=== PATIENT | male | born 1955 | race African-American/Black ===

== ENCOUNTER 2016-07-30 14:54 | Inpatient (IN) | payer BC ==
[2016-07-30 18:54] VITALS: BMI 23.5
--- NOTE | 2016-07-30 20:56 | HP ---
CIWA Score - CIWA Score Nausea/Vomitin Muscle Tremors: 3 Anxiety: 3 Agitation: 3 Paroxysmal Sweats: 2 Orientation: 0-Oriented Tacttile Disturbances: 2-Mild Itch/Numbness/Burn Auditory Disturbances: 2-Mild Harshness/Frighten Visual Disturbances: 2-Mild Sensitivity Headache: 2-Mild CIWA-Ar Total Score: 22 Admission ROS BHS - HPI Chief Complaint: i need help to stop drinking alcohol and cocaine, Allergies/Adverse Reactions: Allergies Allergy/AdvReac Type Severity Reaction Status Date / Time sulfa Allergy Uncoded 07/30/16 20:57 History of Present Illness: this 61 years old male with alcohol and cocain dependence,withdrawal symptom, never been in detox before, syncope hiv since 1986 non compliance with medication,last 3 months ago htn nicotine dependence weight loss Exam Limitations: No Limitations - Ebola screening Have you been sick,other than usual withdrawal symptoms: No - Review of Systems Constitutional: Loss of Appetite, Malaise, Night Sweats, Changes in sleep, Weakness, Unintentional Wgt. Loss EENT: reports: Nose Congestion Respiratory: reports: No Symptoms reported Cardiac: reports: No Symptoms Reported GI: reports: Nausea, Vomiting, Abdominal cramping : reports: No Symptoms Reported Musculoskeletal: reports: Back Pain, Muscle Pain Integumentary: reports: Dryness Neuro: reports: Headache, Tremors Endocrine: reports: No Symptoms Reported Hematology: reports: Other (hiv) Psychiatric: reports: No Sypmtoms Reported, Judgement Intact, Mood/Affect Appropiate, Orientated x3 Patient History - Patient Medical History Hx Anemia: No Hx Asthma: No Hx Chronic Obstructive Pulmonary Disease (COPD): No Hx Cancer: No Hx Cardiac Disorders: No Hx Congestive Heart Failure: No Hx Hypertension: Yes (on lisinopril 10 mgs po daily) Hx Hypercholesterolemia: No Hx Pacemaker: No HX Cerebrovascular Accident: No Hx Seizures: No Hx Dementia: No Hx Diabetes: No Hx Gastrointestinal Disorders: No Hx Liver Disease: No Hx Genitourinary Disorders: No Hx Sexually Transmitted Disorders: No Hx Renal Disease (ESRD): No Hx Thyroid Disease: No Hx Human Immunodeficiency Virus (HIV): Yes (since 1986) Hx Hepatitis C: Yes Hx Depression: No Hx Suicide Attempt: No Hx Bipolar Disorder: No Hx Schizophrenia: No Other Medical History: no suicidl,no homicidal - Patient Surgical History Past Surgical History: Yes Hx Lung Surgery: Yes (lobectomy left lower in 2015 in [place] ) - PPD History Previous Implant?: Yes Documented Results: Positive w/o proof PPD to be Administered?: No - Smoking Cessation Smoking history: Current every day smoker Have you smoked in the past 12 months: Yes Aproximately how many cigarettes per day: 7 Cigars Per Day: 0 Hx Chewing Tobacco Use: No Initiated information on smoking cessation: Yes 'Breaking Loose' booklet given: 07/30/16 - Substance & Tx. History Hx Alcohol Use: Yes Hx Substance Use: Yes Substance Use Type: Alcohol, Cocaine Hx Substance Use Treatment: No - Substances Abused Alcohol Route: Oral Frequency: Daily Amount used: 2pints of vodka/5 of 24 ozs of beer Age of first use: 10 Date of Last Use: 07/29/16 Cocaine Route: Inhalation Frequency: 1-3 times last 30 days Amount used: 20$ Age of first use: 16 Date of Last Use: 07/29/16 Family Disease History - Family Disease History Family History: Denies Admission Physical Exam [facility] - Vital Signs Vital Signs: Vital Signs - 24 hr 07/30/16 18:51 Temperature 98.0 F Pulse Rate 86 Respiratory 18 Rate Blood Pressure 163/91 - Physical General Appearance: Yes: Moderate Distress, Tremorous, Irritable, Sweating HEENTM: Yes: Within Normal Limits, Hearing grossly Normal, Normal ENT Inspection Respiratory: Yes: Lungs Clear, Normal Breath Sounds, No Respiratory Distress, Surgical Scar (s/p lower lobectomy left benign) Neck: Yes: Supple, Trachea in good position Breast: Yes: Within Normal Limits Cardiology: Yes: Within Normal Limits, Regular Rhythm, Regular Rate, S1, S2 Abdominal: Yes: Within Normal Limits, Normal Bowel Sounds, Non Tender, Flat, Soft Genitourinary: Yes: Within Normal Limits Back: Yes: Muscle Spasm Musculoskeletal: Yes: Back pain, Muscle Pain Extremities: Yes: Normal Range of Motion, Non-Tender, Tremors Neurological: Yes: analytical lab technician II-XII NML intact, Fully Oriented, Alert, Motor Strength 5/5 Integumentary: Yes: Dry Lymphatic: Yes: Within Normal Limits - Diagnostic (1) Alcohol dependence with uncomplicated withdrawal Current Visit: Yes Status: Acute (2) Cocaine dependence Current Visit: Yes Status: Acute (3) Syncope Current Visit: Yes Status: Acute (4) HIV disease Current Visit: Yes Status: Acute (5) Hypertension Current Visit: Yes Status: Acute (6) Weight loss Current Visit: Yes Status: Acute (7) Hepatitis C Current Visit: Yes Status: Acute (8) History of lobectomy of lung Current Visit: Yes Status: Acute Cleared for Admission S - Detox or Rehab [facility] Level of Care: Medically Managed Detox Regimen/Protocol: Librium S Breath Alcohol Content Breath Alcohol Content: 0 Urine Drug Screen - Results Drug Screen Negative: No Urine Drug Screen Results: WINSTON-Cocaine
[2016-07-30] MEDS ORDERED: MAGNESIUM CITRATE 300 ML BOTTLE PO PRN (21:19)
[2016-07-30] MEDS ORDERED: guaiFENesin/D-METHORPHAN HB 10 ML UNIT-DOSE CUPS PO PRN (21:19)
[2016-07-30] MEDS ORDERED: ACETAMINOPHEN 325 MG TABLET (FP) PO PRN (21:19)
[2016-07-30] MEDS ORDERED: NICOTINE POLACRILEX 2 MG GUM BC PRN (21:19)
[2016-07-30] MEDS ORDERED: chlordiazePOXIDE HCL 25 MG CAPSULE PO ONE (21:19)
[2016-07-30] MEDS ORDERED: MAGNESIUM HYDROX 2400MG/30ML ORAL SUSPENSION 30 ML CUP PO PRN (21:19)
[2016-07-30] MEDS ORDERED: hydrOXYzine PAMOATE 50 MG CAPSULE (FP) PO PRN (21:19)
[2016-07-30] MEDS ORDERED: MAG HYDROX/AL HYDROX/SIMETH 30 ML UNIT-DOSE CUP PO PRN (21:19)
[2016-07-30] MEDS ORDERED: MENTHOL/PHENOL 1 EACH UD MM PRN (21:19)
[2016-07-30] MEDS ORDERED: IBUPROFEN 400 MG TABLET (FP) PO PRN (21:19)
[2016-07-30] MEDS ORDERED: P-EPHED 60MG/TRIPROLIDI 2.5MG TABLET PO PRN (21:19)
[2016-07-30] MEDS ORDERED: LOPERAMIDE HCL 2 MG CAPSULE PO PRN (21:19)
[2016-07-30] MEDS ORDERED: chlordiazePOXIDE HCL 25 MG CAPSULE PO PRN (21:19)
[2016-07-30] MEDS: THIAMINE HCL 100 MG TABLET (FP) PO SCH (23:11)
[2016-07-30] MEDS: chlordiazePOXIDE HCL 25 MG CAPSULE PO SCH (23:11)
[2016-07-30] MEDS: diphenhydrAMINE HCL 50 MG CAPSULE PO PRN (23:11)
[2016-07-31 03:00] LABS: URINE APPEARANCE CLEAR; URINE BILIRUBIN NEGATIVE (NEGATIVE); URINE BLOOD NEGATIVE (NEGATIVE); URINE COLOR DKYELLOW; URINE GLUCOSE (UA) NEGATIVE (NEGATIVE); URINE KETONE NEGATIVE (NEGATIVE); URINE LEUK ESTERASE NEGATIVE (NEGATIVE); URINE NITRITE NEGATIVE (NEGATIVE); URINE PROTEIN NEGATIVE (NEGATIVE); URINE UROBILINOGEN 4.0 E.U/dl E.U./dl (0.2-1.0)
[2016-07-31] MEDS: chlordiazePOXIDE HCL 25 MG CAPSULE PO SCH ×4 (05:42→22:34)
[2016-07-31 09:53] LABS: ALBUMIN 2.3 g/dl (3.4-5.0); ANION GAP 7 (8-16); BILIRUBIN,TOTAL 0.7 mg/dL (0.2-1.0); CALCIUM 7.9 mg/dL (8.5-10.1); CO2 27 mmol/L (21-32); COCKROFT - GAULT 94.75; GLUCOSE,RANDOM 81 mg/dL (74-106); SGOT/AST 167 U/L (15-37); SGPT/ALT 107 U/L (12-78); TOT PROT 7.2 g/dl (6.4-8.2)
[2016-07-31 09:54] LABS: ALK PHOS 82 U/L (45-117)
[2016-07-31 09:56] LABS: MCH 31.6 pg (25.7-33.7); MCHC 32.7 g/dl (32.0-35.9); MEAN CELL VOLUME 96.4 fl (80-96); MEAN PLT VOLUME 11.2 fl (7.5-11.1); PLATELET COUNT 76 K/MM3 (134-434); RDW 13.7 % (11.9-15.9); WHITE BLOOD COUNT 3.6 K/mm3 (4.0-10.0)
[2016-07-31] MEDS: PRENATAL VITAMINS W/ FOLIC ACID TABLET (FP) PO SCH (10:41)
[2016-07-31] MEDS: LISINOPRIL 10 MG TABLET (FP) PO SCH (10:41)
--- NOTE | 2016-07-31 13:08 | EKG ---
Test Reason : Blood Pressure : / mmHG Vent. Rate : 068 BPM Atrial Rate : 068 BPM P-R Int : 178 ms QRS Dur : 100 ms QT Int : 408 ms P-R-T Axes : 071 079 072 degrees QTc Int : 433 ms NORMAL SINUS RHYTHM VOLTAGE CRITERIA FOR LEFT VENTRICULAR HYPERTROPHY ABNORMAL ECG NO PREVIOUS ECGS AVAILABLE Confirmed by MADDIE MUELLER MD ([id number]) on 07/31/2016 1:08:26 PM Referred By: Confirmed By:MADDIE MUELLER MD
--- NOTE | 2016-07-31 13:13 | PN ---
S CIWA - CIWA Score Nausea/Vomitin-Mild Nausea/No Vomiting Muscle Tremors: 4-Moderate,w/Arms Extend Anxiety: 4-Mod. Anxious/Guarded Agitation: 3 Paroxysmal Sweats: 3 Orientation: 0-Oriented Tacttile Disturbances: 1-Very Mild Itch/Numbness Auditory Disturbances: 0-None Visual Disturbances: 0-None Headache: 0-None Present CIWA-Ar Total Score: 16 BHS Progress Note (SOAP) Subjective: Anxiety,tremors,sweating,interrupted sleep,restless Objective: 07/31/16 13:12 Vital Signs - 8 hr 07/31/16 07/31/16 07/31/16 06:25 08:00 09:17 Temperature 97.8 F 98.0 F Pulse Rate 75 69 77 Respiratory 16 18 Rate Blood Pressure 157/94 155/84 158/92 Laboratory Tests 07/30/16 07/31/16 07/31/16 23:08 07:00 07:00 WBC 3.6 L RBC 4.02 Hgb 12.7 Hct 38.8 MCV 96.4 H MCHC 32.7 RDW 13.7 Plt Count 76 L MPV 11.2 H Sodium 140 Potassium 3.8 Chloride 106 Carbon Dioxide 27 Anion Gap 7 L BUN 17 Creatinine 1.0 Creat Clearance w eGFR > 60 Random Glucose 81 Calcium 7.9 L Total Bilirubin 0.7 AST 167 H ALT 107 H Alkaline Phosphatase 82 Total Protein 7.2 Albumin 2.3 L Urine Color Dkyellow Urine Appearance Clear Urine pH 6.0 Ur Specific [place] 1.017 Urine Protein Negative Urine Glucose (UA) Negative Urine Ketones Negative Urine Blood Negative Urine Nitrite Negative Urine Bilirubin Negative Urine Urobilinogen 4.0 e.u/dl Ur Leukocyte Esterase Negative labs noted Assessment: 07/31/16 13:12 Withdrawal sx. Plan: Continue detox
[2016-07-31] MEDS: diphenhydrAMINE HCL 50 MG CAPSULE PO PRN (22:34)
[2016-07-31] MEDS: THIAMINE HCL 100 MG TABLET (FP) PO SCH (22:34)
[2016-08-01] MEDS: chlordiazePOXIDE HCL 25 MG CAPSULE PO SCH ×3 (05:26→17:09)
[2016-08-01] MEDS: PRENATAL VITAMINS W/ FOLIC ACID TABLET (FP) PO SCH (10:48)
[2016-08-01] MEDS: LISINOPRIL 10 MG TABLET (FP) PO SCH (10:48)
--- NOTE | 2016-08-01 15:43 | PN ---
S CIWA - CIWA Score Nausea/Vomitin-No Nausea/No Vomiting Muscle Tremors: 4-Moderate,w/Arms Extend Anxiety: 3 Agitation: 3 Paroxysmal Sweats: 3 Orientation: 0-Oriented Tacttile Disturbances: 1-Very Mild Itch/Numbness Auditory Disturbances: 0-None Visual Disturbances: 0-None Headache: 0-None Present CIWA-Ar Total Score: 14 BHS Progress Note (SOAP) Subjective: Anxiety,tremors,sweating,interrupted sleep,restless. Objective: 08/01/16 15:42 Vital Signs - 8 hr 08/01/16 10:08 Temperature 97.8 F Pulse Rate 77 Respiratory 20 Rate Blood Pressure 153/91 Laboratory Tests 07/30/16 07/31/16 07/31/16 23:08 07:00 07:00 WBC 3.6 L RBC 4.02 Hgb 12.7 Hct 38.8 MCV 96.4 H MCHC 32.7 RDW 13.7 Plt Count 76 L MPV 11.2 H Sodium 140 Potassium 3.8 Chloride 106 Carbon Dioxide 27 Anion Gap 7 L BUN 17 Creatinine 1.0 Creat Clearance w eGFR > 60 Random Glucose 81 Calcium 7.9 L Total Bilirubin 0.7 AST 167 H ALT 107 H Alkaline Phosphatase 82 Total Protein 7.2 Albumin 2.3 L Urine Color Dkyellow Urine Appearance Clear Urine pH 6.0 Ur Specific [place] 1.017 Urine Protein Negative Urine Glucose (UA) Negative Urine Ketones Negative Urine Blood Negative Urine Nitrite Negative Urine Bilirubin Negative Urine Urobilinogen 4.0 e.u/dl Ur Leukocyte Esterase Negative RPR Titer 07/31/16 07:00 WBC RBC Hgb Hct MCV MCHC RDW Plt Count MPV Sodium Potassium Chloride Carbon Dioxide Anion Gap BUN Creatinine Creat Clearance w eGFR Random Glucose Calcium Total Bilirubin AST ALT Alkaline Phosphatase Total Protein Albumin Urine Color Urine Appearance Urine pH Ur Specific [place] Urine Protein Urine Glucose (UA) Urine Ketones Urine Blood Urine Nitrite Urine Bilirubin Urine Urobilinogen Ur Leukocyte Esterase RPR Titer Nonreactive labs noted Assessment: 08/01/16 15:42 Withdrawal sx. Plan: Continue detox
[2016-08-01] MEDS: THIAMINE HCL 100 MG TABLET (FP) PO SCH (22:32)
[2016-08-01] MEDS: chlordiazePOXIDE 5 MG CAPSULE PO SCH (22:32)
[2016-08-02] MEDS: chlordiazePOXIDE 5 MG CAPSULE PO SCH ×3 (06:01→17:57)
[2016-08-02] MEDS: LISINOPRIL 10 MG TABLET (FP) PO SCH ×2 (11:01→21:54)
[2016-08-02] MEDS: PRENATAL VITAMINS W/ FOLIC ACID TABLET (FP) PO SCH (11:01)
--- NOTE | 2016-08-02 13:28 | PN ---
S Progress Note (SOAP) Subjective: Nausea / vomiting, Tremors, Sweating, Body aches, Interrupted sleep. Objective: PT. A & O X 3. 08/02/16 13:25 Vital Signs Temperature 95.0 F L 08/02/16 13:23 Pulse Rate 68 08/02/16 13:23 Respiratory Rate 18 08/02/16 13:23 Blood Pressure 152/95 08/02/16 13:23 O2 Sat by Pulse Oximetry (%) Laboratory Last Values WBC 3.6 K/mm3 (4.0-10.0) L 07/31/16 07:00 RBC 4.02 M/mm3 (4.00-5.60) 07/31/16 07:00 Hgb 12.7 GM/dL (11.7-16.9) 07/31/16 07:00 Hct 38.8 % (35.4-49) 07/31/16 07:00 MCV 96.4 fl (80-96) H 07/31/16 07:00 MCHC 32.7 g/dl (32.0-35.9) 07/31/16 07:00 RDW 13.7 % (11.9-15.9) 07/31/16 07:00 Plt Count 76 K/MM3 (134-434) L 07/31/16 07:00 MPV 11.2 fl (7.5-11.1) H 07/31/16 07:00 Sodium 140 mmol/L (136-145) 07/31/16 07:00 Potassium 3.8 mmol/L (3.5-5.1) 07/31/16 07:00 Chloride 106 mmol/L (98-107) 07/31/16 07:00 Carbon Dioxide 27 mmol/L (21-32) 07/31/16 07:00 Anion Gap 7 (8-16) L 07/31/16 07:00 BUN 17 mg/dL (7-18) 07/31/16 07:00 Creatinine 1.0 mg/dL (0.7-1.3) 07/31/16 07:00 Creat Clearance w eGFR > 60 (>60) 07/31/16 07:00 Random Glucose 81 mg/dL (74-106) 07/31/16 07:00 Calcium 7.9 mg/dL (8.5-10.1) L 07/31/16 07:00 Total Bilirubin 0.7 mg/dL (0.2-1.0) 07/31/16 07:00 AST 167 U/L (15-37) H 07/31/16 07:00 ALT 107 U/L (12-78) H 07/31/16 07:00 Alkaline Phosphatase 82 U/L (45-117) 07/31/16 07:00 Total Protein 7.2 g/dl (6.4-8.2) 07/31/16 07:00 Albumin 2.3 g/dl (3.4-5.0) L 07/31/16 07:00 Urine Color Dkyellow 07/30/16 23:08 Urine Appearance Clear 07/30/16 23:08 Urine pH 6.0 (5.0-8.0) 07/30/16 23:08 Ur Specific [place] 1.017 (1.001-1.035) 07/30/16 23:08 Urine Protein Negative (NEGATIVE) 07/30/16 23:08 Urine Glucose (UA) Negative (NEGATIVE) 07/30/16 23:08 Urine Ketones Negative (NEGATIVE) 07/30/16 23:08 Urine Blood Negative (NEGATIVE) 07/30/16 23:08 Urine Nitrite Negative (NEGATIVE) 07/30/16 23:08 Urine Bilirubin Negative (NEGATIVE) 07/30/16 23:08 Urine Urobilinogen 4.0 e.u/dl E.U./dl (0.2-1.0) 07/30/16 23:08 Ur Leukocyte Esterase Negative (NEGATIVE) 07/30/16 23:08 RPR Titer Nonreactive (NONREACTIVE) 07/31/16 07:00 LABS NOTED. Assessment: 08/02/16 13:27 WITHDRAWAL SYMPTOMS. Plan: CONTINUE DETOX. ADVISED PATIENT TO FOLLOW-UP WITH [facility] / REHAB MEDICAL PROVIDER AFTER DISCHARGE FROM DETOX FOR GENERAL MEDICAL ASSESSMENT AND FOR ABNORMAL ADMISSION LAB VALUES.
[2016-08-02] MEDS: THIAMINE HCL 100 MG TABLET (FP) PO SCH (21:54)
[2016-08-02] MEDS: chlordiazePOXIDE HCL 10 MG CAPSULE PO SCH (22:42)
[2016-08-03] MEDS: chlordiazePOXIDE HCL 10 MG CAPSULE PO SCH ×2 (06:30→10:37)
[2016-08-03 06:31] VITALS: BP 146/88; PULSE 71; TEMP 97.1
--- NOTE | 2016-08-03 08:37 | PN ---
[facility] Progress Note (SOAP) Subjective: no complaints Objective: 08/03/16 08:36 Vital Signs - 8 hr 08/03/16 06:30 Temperature 97.1 F L Pulse Rate 71 Respiratory 18 Rate Blood Pressure 146/88 Laboratory Tests 07/30/16 07/31/16 07/31/16 23:08 07:00 07:00 WBC 3.6 L RBC 4.02 Hgb 12.7 Hct 38.8 MCV 96.4 H MCHC 32.7 RDW 13.7 Plt Count 76 L MPV 11.2 H Sodium 140 Potassium 3.8 Chloride 106 Carbon Dioxide 27 Anion Gap 7 L BUN 17 Creatinine 1.0 Creat Clearance w eGFR > 60 Random Glucose 81 Calcium 7.9 L Total Bilirubin 0.7 AST 167 H ALT 107 H Alkaline Phosphatase 82 Total Protein 7.2 Albumin 2.3 L Urine Color Dkyellow Urine Appearance Clear Urine pH 6.0 Ur Specific [place] 1.017 Urine Protein Negative Urine Glucose (UA) Negative Urine Ketones Negative Urine Blood Negative Urine Nitrite Negative Urine Bilirubin Negative Urine Urobilinogen 4.0 e.u/dl Ur Leukocyte Esterase Negative RPR Titer 07/31/16 07:00 WBC RBC Hgb Hct MCV MCHC RDW Plt Count MPV Sodium Potassium Chloride Carbon Dioxide Anion Gap BUN Creatinine Creat Clearance w eGFR Random Glucose Calcium Total Bilirubin AST ALT Alkaline Phosphatase Total Protein Albumin Urine Color Urine Appearance Urine pH Ur Specific [place] Urine Protein Urine Glucose (UA) Urine Ketones Urine Blood Urine Nitrite Urine Bilirubin Urine Urobilinogen Ur Leukocyte Esterase RPR Titer Nonreactive elevated lfts, hypoalbuminemia, macrocytosis Assessment: 08/03/16 08:36 completed detox, medically stable, malnutirtion 2/2 substance use, hepatitis Plan: discharge, f/u abnormal results PCP, dietary advice given, fluids, encoruageg mbualtions
--- NOTE | 2016-08-03 08:41 | DS ---
[facility] Detox Discharge Summary Admission Date: 07/30/16 Discharge Date: 08/03/16 - History Present History: Alcohol Dependence, Cocaine Dependence Pertinent Past History: HIV, Hep c, anxiety, insomnia, depression - Physical Exam Results Vital Signs: Vital Signs Temperature 97.1 F L 08/03/16 06:30 Pulse Rate 71 08/03/16 06:30 Respiratory Rate 18 08/03/16 06:30 Blood Pressure 146/88 08/03/16 06:30 O2 Sat by Pulse Oximetry (%) Pertinent Admission Physical Exam Findings: withdrawal sx - Treatment Hospital Course: Detox Protocol Followed, Detoxed Safely, Responded well, Discharged Condition Good, Rehab Referral Accepted Patient has Accepted a Rehab Referral to: Yes - Medication Discharge Medications: Ambulatory Orders Atazanavir [Reyataz -] 300 mg PO DAILY 07/30/16 Emtricitabine/Tenofovir [Truvada -] 1 tab PO DAILY 07/30/16 Lisinopril [Prinivil -] 10 mg PO DAILY 07/30/16 Ritonavir [Norvir -] 100 mg PO DAILY 07/30/16 - Diagnosis (1) Alcohol dependence with uncomplicated withdrawal Current Visit: Yes Status: Chronic (2) Cocaine dependence Current Visit: Yes Status: Chronic (3) HIV disease Current Visit: Yes Status: Chronic (4) Hepatitis C Current Visit: Yes Status: Chronic (5) History of lobectomy of lung Current Visit: Yes Status: Inactive (6) Hypertension Current Visit: Yes Status: Chronic (7) Syncope Current Visit: Yes Status: Resolved (8) Weight loss Current Visit: Yes Status: Resolved - AMA Did Patient Leave Against Medical Advice: No
[2016-08-03] MEDS: LISINOPRIL 10 MG TABLET (FP) PO SCH (10:37)
[2016-08-03] MEDS: PRENATAL VITAMINS W/ FOLIC ACID TABLET (FP) PO SCH (10:37)
== END 2016-08-03 10:10 | disposition home or self-care (01) | DRG 774 ==
LOC: YASAS 14:54 → Y3N 21:15
PROVIDERS: ADMIT Internal Medicine; ATTEND Internal Medicine
PROC: HZ2ZZZZ Detoxification Services for Substance Abuse Treatment (ICD-10-PCS; principal; 2016-08-03)
DX: F10.230 Alcohol dependence with withdrawal, uncomplicated (principal); F14.20 Cocaine dependence, uncomplicated; Z21 Asymptomatic human immunodeficiency virus [HIV] infection status; B18.2 Chronic viral hepatitis C; I10 Essential (primary) hypertension; R55 Syncope and collapse; R63.4 Abnormal weight loss; Z68.23 Body mass index [BMI] 23.0-23.9, adult; Z87.09 Personal history of other diseases of the respiratory system
CPT/HCPCS: 36415; 71010-TC; 80053; 81003; 85027; 86593; 93005; 93010

== ENCOUNTER 2018-05-05 09:36 | Inpatient (IN) | payer BC ==
[2018-05-05 10:53] VITALS: BMI 21.5
--- NOTE | 2018-05-05 11:42 | HP ---
CIWA Score Nausea/Vomitin Muscle Tremors: 2 Anxiety: 1-Mildly Anxious Agitation: 2 Paroxysmal Sweats: 1-Minimal Palms Moist Orientation: 1-Uncertain about Date Tacttile Disturbances: 2-Mild Itch/Numbness/Burn Auditory Disturbances: 0-None Visual Disturbances: 0-None Headache: 2-Mild CIWA-Ar Total Score: 13 - Admission Criteria OASAS Guidelines: Admission for Medically Managed Detox: Requires at least one of the followin. CIWA greater than 12 2. Seizures within the past 24 hours 3. Delirium tremens within the past 24 hours 4. Hallucinations within the past 24 hours 5. Acute intervention needed for co occurring medical disorder 6. Acute intervention needed for co occurring psychiatric disorder 7. Severe withdrawal that cannot be handled at a lower level of care (continued vomiting, continued diarrhea, abnormal vital signs) requiring intravenous medication and/or fluids 8. Admission ROS [facility] Chief Complaint: WITHDRAWAL SYMPTOMS Allergies/Adverse Reactions: Allergies Allergy/AdvReac Type Severity Reaction Status Date / Time Sulfa (Sulfonamide Allergy Verified 07/30/16 21:40 Antibiotics) History of Present Illness: 63 Y.O. MAN WITH A HISTORY OF ALCOHOL AND COCAINE DEPENDENCE IS HERE SEEKING DETOX SERVICES. HE REPORTED HE COMPLETED DETOX IN [facility] IN October,. PT. WAS TREATED FOR CANDIDAL ESOPHAGITIS AT [facility] ER AND WAS DISCHARGED ON 05/04/18. Exam Limitations: No Limitations - Ebola screening Have you traveled outside of the country in the last 21 days: No (N) Have you had contact with anyone from an Ebola affected area: No Have you been sick,other than usual withdrawal symptoms: No Do you have a fever: No - Review of Systems Constitutional: Chills, Loss of Appetite, Night Sweats, Unintentional Wgt. Loss EENT: reports: Nose Congestion Respiratory: reports: Cough Cardiac: reports: No Symptoms Reported GI: reports: No Symptoms Reported : reports: No Symptoms Reported Musculoskeletal: reports: No Symptoms Reported Integumentary: reports: No Symptoms Reported Neuro: reports: Tingling Endocrine: reports: No Symptoms Reported Hematology: reports: No Symptoms Reported Psychiatric: reports: Mood/Affect Appropiate, Orientated x3 Other Systems: Reviewed and Negative Patient History - Patient Medical History Hx Anemia: No Hx Asthma: No Hx Chronic Obstructive Pulmonary Disease (COPD): Yes Hx Cancer: No Hx Cardiac Disorders: No Hx Congestive Heart Failure: No Hx Hypertension: Yes (Takes Lisinopril and Clonidine ) Hx Hypercholesterolemia: No Hx Pacemaker: No HX Cerebrovascular Accident: No Hx Seizures: No Hx Dementia: No Hx Diabetes: No Hx Gastrointestinal Disorders: No Hx Liver Disease: Yes (CIRROHSIS ) Hx Genitourinary Disorders: No Hx Sexually Transmitted Disorders: No Hx Renal Disease (ESRD): No Hx Thyroid Disease: No Hx Human Immunodeficiency Virus (HIV): Yes (since 1986) Hx Hepatitis C: Yes (UNTREATED ) Hx Depression: No Hx Suicide Attempt: No Hx Bipolar Disorder: No Hx Schizophrenia: No - Patient Surgical History Past Surgical History: Yes Hx Neurologic Surgery: No Hx Cataract Extraction: No Hx Cardiac Surgery: No Hx Lung Surgery: Yes (lobectomy left lower in 2014 in [place] ) Hx Breast Surgery: No Hx Breast Biopsy: No Hx Abdominal Surgery: No Hx Appendectomy: No Hx Cholecystectomy: No Hx Genitourinary Surgery: No Hx Section: No Hx Orthopedic Surgery: No Other Surgical History: Thoracotomy Anesthesia Reaction: No - PPD History Previous Implant?: No Results: Needs cxr PPD to be Administered?: No - Reproductive History Patient is a Female of Child Bearing Age (11 -55 yrs old): No - Smoking Cessation Smoking history: Current every day smoker Have you smoked in the past 12 months: Yes Aproximately how many cigarettes per day: 3 Cigars Per Day: 0 Hx Chewing Tobacco Use: No Initiated information on smoking cessation: Yes 'Breaking Loose' booklet given: 05/05/18 - Substance & Tx. History Hx Alcohol Use: Yes Hx Substance Use: Yes Substance Use Type: Alcohol, Cocaine Hx Substance Use Treatment: Yes ([facility] 11/2017) - Substances Abused Alcohol Route: Oral Frequency: Daily Amount used: 3 pints of liquor Age of first use: 16 Date of Last Use: 05/05/18 Cocaine Frequency: 1-2 times per week Amount used: $200 Age of first use: 52 Date of Last Use: 05/01/18 Family Disease History - Family Disease History Family Disease History: Heart Disease: Father, [place]: Sister Admission Physical Exam BHS - Vital Signs Vital Signs: Vital Signs - 24 hr 05/05/18 10:44 Temperature 97.3 F L Pulse Rate 70 Respiratory 20 Rate Blood Pressure 147/85 - Physical General Appearance: Yes: No Apparent Distress HEENTM: Yes: Normocephalic, Thrush Respiratory: Yes: Chest Non-Tender, Lungs Clear, Normal Breath Sounds, No Respiratory Distress, No Accessory Muscle Use Neck: Yes: No masses,lesions,Nodules, Trachea in good position Breast: Yes: Breast Exam Deferred Cardiology: Yes: Regular Rhythm, Regular Rate Abdominal: Yes: Normal Bowel Sounds, Non Tender Genitourinary: Yes: Other Back: Yes: Normal Inspection Musculoskeletal: Yes: full range of Motion Extremities: Yes: Normal Capillary Refill, Normal Inspection, Normal Range of Motion, Non-Tender Neurological: Yes: Fully Oriented, Alert, Motor Strength 5/5, Normal Mood/Affect , Normal Response Integumentary: Yes: Normal Color, Dry, Warm - Diagnostic (1) COPD (chronic obstructive pulmonary disease) Current Visit: Yes Status: Chronic (2) Neuropathy Current Visit: Yes Status: Chronic (3) Alcohol dependence with uncomplicated withdrawal Current Visit: Yes Status: Chronic (4) Cocaine dependence Current Visit: Yes Status: Chronic (5) HIV disease Current Visit: Yes Status: Chronic (6) Hepatitis C Current Visit: Yes Status: Chronic (7) Hypertension Current Visit: Yes Status: Chronic (8) Candidal esophagitis Current Visit: Yes Status: Acute (9) Cirrhosis of liver Current Visit: Yes Status: Chronic Cleared for Admission [facility] - Detox or Rehab [facility] Level of Care: Medically Managed Detox Regimen/Protocol: Librium [facility] Breath Alcohol Content Breath Alcohol Content: 0.057 Urine Drug Screen - Results Drug Screen Negative: No Urine Drug Screen Results: WINSTON-Cocaine
[2018-05-05] MEDS ORDERED: MAGNESIUM HYDROX 2400MG/30ML ORAL SUSPENSION 30 ML CUP PO PRN (11:52)
[2018-05-05] MEDS ORDERED: LOPERAMIDE HCL 2 MG CAPSULE PO PRN (11:52)
[2018-05-05] MEDS ORDERED: ACETAMINOPHEN 325 MG TABLET (FP) PO PRN (11:52)
[2018-05-05] MEDS ORDERED: chlordiazePOXIDE HCL 25 MG CAPSULE PO ONE (11:52)
[2018-05-05] MEDS ORDERED: chlordiazePOXIDE HCL 25 MG CAPSULE PO PRN (11:52)
[2018-05-05] MEDS ORDERED: hydrOXYzine PAMOATE 50 MG CAPSULE (FP) PO PRN (11:52)
[2018-05-05] MEDS ORDERED: MENTHOL/PHENOL 1 EACH UD MM PRN (11:52)
[2018-05-05] MEDS ORDERED: IBUPROFEN 400 MG TABLET (FP) PO PRN (11:52)
[2018-05-05] MEDS ORDERED: MAGNESIUM CITRATE 300 ML BOTTLE PO PRN (11:52)
[2018-05-05] MEDS ORDERED: MAG HYDROX/AL HYDROX/SIMETH 30 ML UNIT-DOSE CUP PO PRN (11:52)
[2018-05-05] MEDS ORDERED: P-EPHED 60MG/TRIPROLIDI 2.5MG TABLET PO PRN (11:52)
[2018-05-05] MEDS ORDERED: guaiFENesin/D-METHORPHAN HB 10 ML UNIT-DOSE CUPS PO PRN (11:52)
[2018-05-05] MEDS ORDERED: NICOTINE POLACRILEX 2 MG GUM BUC PRN (11:52)
[2018-05-05] MEDS ORDERED: FLUCONAZOLE 100 MG TABLET (UD) PO ONE (11:54)
[2018-05-05] MEDS ORDERED: LORazepam 2 MG TABLET PO ONE (14:15)
[2018-05-05] MEDS: LISINOPRIL 20 MG TABLET (FP) PO SCH (15:04)
[2018-05-05] MEDS: FLUCONAZOLE 100 MG TABLET (UD) PO SCH (15:05)
[2018-05-05] MEDS ORDERED: chlordiazePOXIDE HCL 25 MG CAPSULE PO SCH (17:00)
[2018-05-05] MEDS: LORazepam 2 MG TABLET PO SCH ×2 (17:21→23:58)
[2018-05-05] MEDS: MELATONIN 5 MG TABLETS PO PRN (22:15)
[2018-05-05] MEDS: THIAMINE HCL 100 MG TABLET (FP) PO SCH (22:15)
[2018-05-06] MEDS: LORazepam 1 MG TABLET PO PRN (05:26)
[2018-05-06] MEDS: LORazepam 2 MG TABLET PO SCH ×2 (05:41→11:41)
[2018-05-06] MEDS: EMTRICITABINE 200MG/TENOFOVIR 300MG PO SCH (07:16)
[2018-05-06] MEDS: ATAZANAVIR SO4 300 MG CAPSULE PO SCH (07:16)
[2018-05-06] MEDS: RITONAVIR 100 MG TABLET PO SCH (07:16)
--- NOTE | 2018-05-06 09:05 | PN ---
[facility] CIWA - CIWA Score Nausea/Vomitin-Mild Nausea/No Vomiting Muscle Tremors: 3 Anxiety: 3 Agitation: 2 Paroxysmal Sweats: 1-Minimal Palms Moist Orientation: 1-Uncertain about Date Tacttile Disturbances: 0-None Auditory Disturbances: 0-None Visual Disturbances: 0-None Headache: 1-Very Mild CIWA-Ar Total Score: 12 S Progress Note (SOAP) Subjective: positive ppd chest x ray ordered SYSTOLIC BETWEE 150-140 BEGIN LISINOPRIL 20 MG PO BID TREMOR SWEATING RESTLESSNESS Objective: 05/06/18 14:41 Vital Signs Temperature 97.0 F L 05/06/18 13:17 Pulse Rate 67 05/06/18 13:17 Respiratory Rate 18 05/06/18 13:17 Blood Pressure 149/88 05/06/18 13:17 O2 Sat by Pulse Oximetry (%) Laboratory Last Values WBC 2.8 K/mm3 (4.0-10.0) L 05/06/18 07:00 RBC 3.72 M/mm3 (4.00-5.60) L 05/06/18 07:00 Hgb 11.6 GM/dL (11.7-16.9) L 05/06/18 07:00 Hct 35.2 % (35.4-49) L 05/06/18 07:00 MCV 94.6 fl (80-96) 05/06/18 07:00 MCH 31.2 pg (25.7-33.7) 05/06/18 07:00 MCHC 33.0 g/dl (32.0-35.9) 05/06/18 07:00 RDW 12.8 % (11.9-15.9) 05/06/18 07:00 Plt Count 79 K/MM3 (134-434) L 05/06/18 07:00 MPV 11.1 fl (7.5-11.1) 05/06/18 07:00 Sodium 139 mmol/L (136-145) 05/06/18 07:00 Potassium 4.0 mmol/L (3.5-5.1) 05/06/18 07:00 Chloride 105 mmol/L (98-107) 05/06/18 07:00 Carbon Dioxide 27 mmol/L (21-32) 05/06/18 07:00 Anion Gap 7 MMOL/L (8-16) L 05/06/18 07:00 BUN 12 mg/dL (7-18) 05/06/18 07:00 Creatinine 0.8 mg/dL (0.55-1.3) 05/06/18 07:00 Creat Clearance w eGFR > 60 (>60) 05/06/18 07:00 Random Glucose 92 mg/dL (74-106) 05/06/18 07:00 Calcium 8.6 mg/dL (8.5-10.1) 05/06/18 07:00 Total Bilirubin 0.6 mg/dL (0.2-1) 05/06/18 07:00 AST 72 U/L (15-37) H 05/06/18 07:00 ALT 61 U/L (13-61) 05/06/18 07:00 Alkaline Phosphatase 76 U/L (45-117) 05/06/18 07:00 Total Protein 6.9 g/dl (6.4-8.2) 05/06/18 07:00 Albumin 2.3 g/dl (3.4-5.0) L 05/06/18 07:00 RPR Titer Nonreactive (NONREACTIVE) 05/06/18 07:00 LAB NOTED LONG HISTORY OF LOW WBC FOLLOW UP WITH INFECTIOUS DISEASE SPECIALIST DISCUSS ALCOHOL RELATED LIVER ENZYME ELEVATION 05/06/18 14:44 Assessment: 05/06/18 14:45 WITHDRAWAL SX HYPERTENSION HIV Plan: CONTINUE DETOX
[2018-05-06] MEDS: PRENATAL VITAMINS W/ FOLIC ACID TABLET (FP) PO SCH (10:15)
[2018-05-06] MEDS: FLUCONAZOLE 100 MG TABLET (UD) PO SCH (10:15)
[2018-05-06] MEDS: LISINOPRIL 20 MG TABLET (FP) PO SCH ×2 (10:15→22:21)
[2018-05-06] MEDS: NICOTINE 14 MG/24 HOURS TOPICAL PATCH TD SCH (10:16)
[2018-05-06 11:01] LABS: HEMATOCRIT 35.2 % (35.4-49); HEMOGLOBIN 11.6 GM/dL (11.7-16.9); MCH 31.2 pg (25.7-33.7); MEAN CELL VOLUME 94.6 fl (80-96); MEAN PLT VOLUME 11.1 fl (7.5-11.1); PLATELET COUNT 79 K/MM3 (134-434); RBC 3.72 M/mm3 (4.00-5.60); RDW 12.8 % (11.9-15.9); WHITE BLOOD COUNT 2.8 K/mm3 (4.0-10.0)
[2018-05-06 11:06] LABS: ALBUMIN 2.3 g/dl (3.4-5.0); ALK PHOS 76 U/L (45-117); ANION GAP 7 MMOL/L (8-16); BILIRUBIN,TOTAL 0.6 mg/dL (0.2-1); BLOOD UREA NITROGEN 12 mg/dL (7-18); CALCIUM 8.6 mg/dL (8.5-10.1); CHLORIDE 105 mmol/L (98-107); CO2 27 mmol/L (21-32); CREATININE 0.8 mg/dL (0.55-1.3); GLUCOSE,RANDOM 92 mg/dL (74-106); SGOT/AST 72 U/L (15-37); SGPT/ALT 61 U/L (13-61); SODIUM 139 mmol/L (136-145); TOT PROT 6.9 g/dl (6.4-8.2)
[2018-05-06] MEDS ORDERED: chlordiazePOXIDE HCL 25 MG CAPSULE PO SCH (17:00)
[2018-05-06] MEDS: LORazepam 1 MG TABLET PO SCH ×2 (17:45→23:10)
[2018-05-06] MEDS: THIAMINE HCL 100 MG TABLET (FP) PO SCH (22:21)
[2018-05-07] MEDS: LORazepam 1 MG TABLET PO SCH ×4 (05:29→23:21)
[2018-05-07] MEDS: ATAZANAVIR SO4 300 MG CAPSULE PO SCH (07:42)
[2018-05-07] MEDS: RITONAVIR 100 MG TABLET PO SCH (07:42)
[2018-05-07] MEDS: EMTRICITABINE 200MG/TENOFOVIR 300MG PO SCH (07:42)
[2018-05-07] MEDS: FLUCONAZOLE 100 MG TABLET (UD) PO SCH (10:02)
[2018-05-07] MEDS: NICOTINE 14 MG/24 HOURS TOPICAL PATCH TD SCH (10:02)
[2018-05-07] MEDS: LISINOPRIL 20 MG TABLET (FP) PO SCH ×2 (10:02→22:37)
[2018-05-07] MEDS: PRENATAL VITAMINS W/ FOLIC ACID TABLET (FP) PO SCH (10:02)
--- NOTE | 2018-05-07 13:53 | PN ---
S CIWA - CIWA Score Nausea/Vomitin-No Nausea/No Vomiting Muscle Tremors: 2 Anxiety: 1-Mildly Anxious Agitation: 1-Slight > Activity Paroxysmal Sweats: 1-Minimal Palms Moist Orientation: 0-Oriented Tacttile Disturbances: 0-None Auditory Disturbances: 0-None Visual Disturbances: 0-None Headache: 2-Mild CIWA-Ar Total Score: 7 BHS Progress Note (SOAP) Subjective: tremor sweating anxiety trouble sleep throughout the night Objective: 05/07/18 13:52 Vital Signs Temperature 97.4 F L 05/07/18 09:13 Pulse Rate 75 05/07/18 09:13 Respiratory Rate 18 05/07/18 09:13 Blood Pressure 135/82 05/07/18 09:13 O2 Sat by Pulse Oximetry (%) Laboratory Last Values WBC 2.8 K/mm3 (4.0-10.0) L 05/06/18 07:00 RBC 3.72 M/mm3 (4.00-5.60) L 05/06/18 07:00 Hgb 11.6 GM/dL (11.7-16.9) L 05/06/18 07:00 Hct 35.2 % (35.4-49) L 05/06/18 07:00 MCV 94.6 fl (80-96) 05/06/18 07:00 MCH 31.2 pg (25.7-33.7) 05/06/18 07:00 MCHC 33.0 g/dl (32.0-35.9) 05/06/18 07:00 RDW 12.8 % (11.9-15.9) 05/06/18 07:00 Plt Count 79 K/MM3 (134-434) L 05/06/18 07:00 MPV 11.1 fl (7.5-11.1) 05/06/18 07:00 Sodium 139 mmol/L (136-145) 05/06/18 07:00 Potassium 4.0 mmol/L (3.5-5.1) 05/06/18 07:00 Chloride 105 mmol/L (98-107) 05/06/18 07:00 Carbon Dioxide 27 mmol/L (21-32) 05/06/18 07:00 Anion Gap 7 MMOL/L (8-16) L 05/06/18 07:00 BUN 12 mg/dL (7-18) 05/06/18 07:00 Creatinine 0.8 mg/dL (0.55-1.3) 05/06/18 07:00 Creat Clearance w eGFR > 60 (>60) 05/06/18 07:00 Random Glucose 92 mg/dL (74-106) 05/06/18 07:00 Calcium 8.6 mg/dL (8.5-10.1) 05/06/18 07:00 Total Bilirubin 0.6 mg/dL (0.2-1) 05/06/18 07:00 AST 72 U/L (15-37) H 05/06/18 07:00 ALT 61 U/L (13-61) 05/06/18 07:00 Alkaline Phosphatase 76 U/L (45-117) 05/06/18 07:00 Total Protein 6.9 g/dl (6.4-8.2) 05/06/18 07:00 Albumin 2.3 g/dl (3.4-5.0) L 05/06/18 07:00 RPR Titer Nonreactive (NONREACTIVE) 05/06/18 07:00 hiv chronic low wbc lab noted 05/07/18 13:56 Assessment: 05/07/18 13:56 withdrawal sx hiv with low wbc Plan: continue detox discuss negative consequences of alcohol misuse
[2018-05-07] MEDS ORDERED: chlordiazePOXIDE 5 MG CAPSULE PO SCH (17:00)
[2018-05-07] MEDS: THIAMINE HCL 100 MG TABLET (FP) PO SCH (22:37)
[2018-05-07] MEDS: MELATONIN 5 MG TABLETS PO PRN (22:38)
[2018-05-07] MEDS: LORazepam 1 MG TABLET PO PRN (23:22)
[2018-05-08] MEDS ORDERED: LORazepam 2 MG TABLET PO ONE (06:00)
[2018-05-08] MEDS: RITONAVIR 100 MG TABLET PO SCH (08:03)
[2018-05-08] MEDS: ATAZANAVIR SO4 300 MG CAPSULE PO SCH (08:03)
[2018-05-08] MEDS: EMTRICITABINE 200MG/TENOFOVIR 300MG PO SCH (08:08)
[2018-05-08] MEDS: FLUCONAZOLE 100 MG TABLET (UD) PO SCH (09:59)
[2018-05-08] MEDS: LISINOPRIL 20 MG TABLET (FP) PO SCH ×2 (09:59→22:11)
[2018-05-08] MEDS: PRENATAL VITAMINS W/ FOLIC ACID TABLET (FP) PO SCH (09:59)
[2018-05-08] MEDS: NICOTINE 14 MG/24 HOURS TOPICAL PATCH TD SCH (10:00)
--- NOTE | 2018-05-08 14:52 | PN ---
BHS Progress Note (SOAP) Subjective: Interrupted Sleep, H/A, Tremors, Diarrhea, Sweating. Objective: PATIENT A & O X 3. IN NO ACUTE DISTRESS. 05/08/18 14:50 Vital Signs Temperature 97.6 F 05/08/18 13:17 Pulse Rate 68 05/08/18 13:17 Respiratory Rate 16 05/08/18 13:17 Blood Pressure 139/76 05/08/18 13:17 O2 Sat by Pulse Oximetry (%) Laboratory Tests 05/06/18 05/06/18 05/06/18 07:00 07:00 07:00 WBC 2.8 L RBC 3.72 L Hgb 11.6 L Hct 35.2 L MCV 94.6 MCH 31.2 MCHC 33.0 RDW 12.8 Plt Count 79 L MPV 11.1 Sodium 139 Potassium 4.0 Chloride 105 Carbon Dioxide 27 Anion Gap 7 L BUN 12 Creatinine 0.8 Creat Clearance w eGFR > 60 Random Glucose 92 Calcium 8.6 Total Bilirubin 0.6 AST 72 H ALT 61 Alkaline Phosphatase 76 Total Protein 6.9 Albumin 2.3 L RPR Titer Nonreactive LABS NOTED. Assessment: 05/08/18 14:51 WITHDRAWAL SYMPTOMS. LEUKOPENIA. ANEMIA. THROMBOCYTOPENIA. 05/08/18 14:52 Plan: CONTINUE DETOX. INCREASE DAILY PO FLUID INTAKE.
[2018-05-08] MEDS ORDERED: chlordiazePOXIDE HCL 10 MG CAPSULE PO SCH (17:00)
[2018-05-08] MEDS: MELATONIN 5 MG TABLETS PO PRN (22:11)
[2018-05-08] MEDS: THIAMINE HCL 100 MG TABLET (FP) PO SCH (22:11)
[2018-05-09] MEDS: RITONAVIR 100 MG TABLET PO SCH (07:53)
[2018-05-09] MEDS: ATAZANAVIR SO4 300 MG CAPSULE PO SCH (07:53)
[2018-05-09] MEDS: EMTRICITABINE 200MG/TENOFOVIR 300MG PO SCH (07:53)
[2018-05-09 09:27] VITALS: BP 125/79; PULSE 96; TEMP 98.1
--- NOTE | 2018-05-09 17:47 | DS ---
[facility] Detox Discharge Summary Admission Date: 05/05/18 Discharge Date: 05/09/18 - History Present History: Alcohol Dependence, Cocaine Dependence Additional Comments: PATIENT GOING TO [facility] ([place], [place]) FOR AFTERCARE. AT PATIENT'S REQUEST, DISCHARGE PRESCRIPTIONS FOR AFTERCARE SENT TO [facility] ([place], [place]). PATIENT ADVISED TO FOLLOW-UP WITH [facility] DR. Shereen PRYOR ([place], [place]) AFTER DISCHARGE FORM REHAB FOR FURTHER GENERAL MEDICAL ASSESSMENT AND FOR HISTORY OF H.I.V. PATIENT VERBALIZED UNDERSTANDING OF RECOMMENDATION. Pertinent Past History: History of Cirrhosis of Liver, H.I.V., Hep C (Not Treated), Candidal Esophagitis , HTN, C.O.P.D., Neuropathy. - Physical Exam Results Vital Signs: Vital Signs Temperature 98.1 F 05/09/18 09:27 Pulse Rate 96 H 05/09/18 09:27 Respiratory Rate 18 05/09/18 09:27 Blood Pressure 125/79 05/09/18 09:27 O2 Sat by Pulse Oximetry (%) Pertinent Admission Physical Exam Findings: WITHDRAWAL SYMPTOMS. Laboratory Tests 05/06/18 05/06/18 05/06/18 07:00 07:00 07:00 WBC 2.8 L RBC 3.72 L Hgb 11.6 L Hct 35.2 L MCV 94.6 MCH 31.2 MCHC 33.0 RDW 12.8 Plt Count 79 L MPV 11.1 Sodium 139 Potassium 4.0 Chloride 105 Carbon Dioxide 27 Anion Gap 7 L BUN 12 Creatinine 0.8 Creat Clearance w eGFR > 60 Random Glucose 92 Calcium 8.6 Total Bilirubin 0.6 AST 72 H ALT 61 Alkaline Phosphatase 76 Total Protein 6.9 Albumin 2.3 L RPR Titer Nonreactive LABS NOTED. - Treatment Hospital Course: Detox Protocol Followed, Detoxed Safely, Responded well, Discharged Condition Good, Rehab Referral Accepted Patient has Accepted a Rehab Referral to: [facility] ([place], [place]). - Medication Discharge Medications: Ambulatory Orders Atazanavir Sulfate [Reyataz] 300 mg PO DAILY #30 capsule 05/09/18 Atazanavir [Reyataz -] 300 mg PO DAILY #30 capsule 05/09/18 Emtricitabine/Tenofovir [Truvada -] 1 tab PO DAILY #30 tablet 05/09/18 Fluconazole 200 mg PO DAILY 7 Days #7 tablet 05/09/18 Fluconazole 200 mg PO DAILY 7 Days #7 tablet 05/09/18 Lisinopril [Prinivil -] 20 mg PO DAILY #30 tablet 05/09/18 Ritonavir [Norvir -] 100 mg PO DAILY #30 tab 05/09/18 - Diagnosis (1) Candidal esophagitis Status: Acute (2) Alcohol dependence with uncomplicated withdrawal Status: Acute (3) COPD (chronic obstructive pulmonary disease) Status: Chronic Qualifiers: COPD type: unspecified COPD Qualified Code(s): J44.9 - Chronic obstructive pulmonary disease, unspecified (4) Cirrhosis of liver Status: Chronic Qualifiers: Hepatic cirrhosis type: unspecified hepatic cirrhosis Ascites presence: unspecified Qualified Code(s): K74.60 - Unspecified cirrhosis of liver (5) HIV disease Status: Chronic (6) Hypertension Status: Chronic Qualifiers: Hypertension type: unspecified Qualified Code(s): I10 - Essential (primary ) hypertension (7) Cocaine dependence Status: Chronic Qualifiers: Substance use status: in withdrawal Qualified Code(s): F14.23 - Cocaine dependence with withdrawal (8) Hepatitis C Status: Chronic Qualifiers: Viral hepatitis chronicity: chronic Hepatic coma status: without hepatic coma Qualified Code(s): B18.2 - Chronic viral hepatitis C (9) Neuropathy Status: Chronic - AMA Did Patient Leave Against Medical Advice: No
== END 2018-05-09 09:28 | disposition home or self-care (01) | DRG 774 ==
LOC: YASAS 09:36 → Y3N 12:50
PROVIDERS: ADMIT Neuromusculoskeletal Medicine & OMM; ATTEND Neuromusculoskeletal Medicine & OMM
PROC: HZ2ZZZZ Detoxification Services for Substance Abuse Treatment (ICD-10-PCS; principal; 2018-05-05)
DX: F10.230 Alcohol dependence with withdrawal, uncomplicated (principal); F14.20 Cocaine dependence, uncomplicated; B20 Human immunodeficiency virus [HIV] disease; I10 Essential (primary) hypertension; J44.9 Chronic obstructive pulmonary disease, unspecified; G62.9 Polyneuropathy, unspecified; B18.2 Chronic viral hepatitis C; B37.81 Candidal esophagitis; K74.60 Unspecified cirrhosis of liver; D64.9 Anemia, unspecified; D69.6 Thrombocytopenia, unspecified; D72.829 Elevated white blood cell count, unspecified
CPT/HCPCS: 36415; 71046-TC-FY; 80053; 85027; 86593